=== PATIENT | female | born 1970 | race African-American/Black ===

== ENCOUNTER 2017-03-16 18:50 | Emergency (ER) | payer MEDICAID, OTHER ==
[~2017-03-16] VITALS: Ht 157.5 cm; Wt 84.8 kg
[~2017-03-16 18:50] MED LIST: IBUP-232 PO; ZITH250T PO; ZOFR4TAB3 SL
[2017-03-16 18:52] VITALS: BP 153/99; PULSE 124; RESP 22; TEMP 102.2; O2SAT 98
--- NOTE | 2017-03-16 19:22 | PD ---
Physical Exam Date Seen by Provider: Mar 16, 2017 Time Seen by Provider: 19:17 Narrative 46 yo female here for fever. Was seen at [facility] and diagnosed with sinusitis. Given amoxicillin. Continues to have fevers and headaches. Headache pain is 7/10. Also having some abdominal pain since starting amoxicillin. Taking OTC meds with minimal relief. Vitals showed elevated temperature and tachycardia. Awaiting bed placement. Data Data Last Documented VS Vital Signs Date Time Temp Pulse Resp B/P Pulse Ox O2 Delivery O2 Flow Rate FiO2 03/16/17 18:52 102.2 124 22 153/99 98 Room Air [facility] Medical Record Reviewed: Yes Supervised Visit with PRITESH: No Morgan Ortega Mar 16, 2017 19:22
[2017-03-16] MEDS ORDERED: SODIUM CHLOR 0.9% 1000 ML INJ 400 ML IV ONE (20:12)
[2017-03-16] MEDS ORDERED: SODIUM CHLOR 0.9% 1000 ML INJ 1,000 ML IV ONE ×2 (20:12)
--- NOTE | 2017-03-16 20:14 | PD ---
HPI Chief Complaint: Abdominal Pain Time Seen by Provider: 20:14 Travel History International Travel<30 days: No Contact w/Intl Traveler<30days: No Traveled to known affect area: No History of Present Illness HPI 46-year-old female who is primarily Slovenian speaking, interpretation done by ROSEANN Vicekrs, presents to emergency department for evaluation. Patient states that she has had a fever for the last 3-4 days. She was seen and evaluated for the hospital, diagnosed with sinusitis and started on amoxicillin. She states she has been taking this. Has caused some abdominal discomfort. Denies diarrhea. No urinary symptoms. Patient denies any cough or chest congestion. Reports frontal sinus pain and pressure. No other symptoms to report at this time [facility] Past Medical History Medical History: Denies Significant Hx Diminished Hearing: No ?: Not Past Surgical History Surgical History: No Previous Surgery Social History Alcohol Use: No Tobacco Use: No Substance Use: No Allergies-Medications (Allergen,Severity, Reaction): Coded Allergies: No Known Allergies (Verified , 02/28/12) Reported Meds & Prescriptions Reported Meds & Active Scripts Active Augmentin (Amoxicillin-Clavulanate) 875-125 Mg Tab 1 Tab PO BID 10 Days Review of Systems Except as stated in HPI: all other systems reviewed are Neg Physical Exam Narrative GENERAL: Well-nourished, well-developed female patient in no acute distress SKIN: Focused skin assessment warm/dry. HEAD: Normocephalic. Tenderness with palpation of the frontal maxillary sinuses. EYES: No scleral icterus. No injection or drainage. ENT: Mucosa pink and moist. No erythema or exudates. No uvular edema. No uvular , palatal, or tonsillar deviation. Airway patent. Nasal turbinates are inflamed without nasal blood, purulent drainage or septal hematoma. NECK: Supple, trachea midline. No JVD or lymphadenopathy. CARDIOVASCULAR: Regular rate and rhythm without murmurs, gallops, or rubs. RESPIRATORY: Breath sounds equal bilaterally. No accessory muscle use. GASTROINTESTINAL: Abdomen soft, non-tender, nondistended. No guarding. No rebound tenderness. MUSCULOSKELETAL: No cyanosis, or edema. BACK: Nontender without obvious deformity. No CVA tenderness. Data Data Last Documented VS Vital Signs Date Time Temp Pulse Resp B/P Pulse Ox O2 Delivery O2 Flow Rate FiO2 03/16/17 22:35 77 18 96 Room Air 03/16/17 22:10 98.7 03/16/17 18:52 153/99 Orders Electrocardiogram (03/16/17 20:12) Complete Blood Count With Diff (03/16/17 20:12) Comprehensive Metabolic Panel (03/16/17 20:12) Prothrombin Time / Inr (Pt) (03/16/17 20:12) Act Partial Throm Time (Ptt) (03/16/17 20:12) Lactic Acid Sepsis Protocol (03/16/17 20:12) Lipase (03/16/17 20:12) Urinalysis - C+S If Indicated (03/16/17 20:12) Influenzae A/B Antigen (03/16/17 20:12) Blood Culture (03/16/17 20:12) Chest, Single Ap (03/16/17 20:12) Blood Glucose (03/16/17 20:12) Ecg Monitoring (03/16/17 20:12) Iv Access Insert/Monitor (03/16/17 20:12) Oximetry (03/16/17 20:12) Oxygen Administration (03/16/17 20:12) Acetaminophen (Tylenol) (03/16/17 20:15) Ibuprofen (Motrin) (03/16/17 20:15) Sodium Chlor 0.9% 1000 Ml Inj (Ns 1000 M (03/16/17 20:12) Sodium Chlor 0.9% 1000 Ml Inj (Ns 1000 M (03/16/17 20:12) Sodium Chlor 0.9% 1000 Ml Inj (Ns 1000 M (03/16/17 20:12) Ed Urine Pregnancytest Poc (03/16/17 20:12) Group A Rapid Strep Screen (03/16/17 20:12) Strep Culture (Group A) (03/16/17 20:10) Labs Laboratory Tests Test 03/16/17 03/16/17 20:15 20:32 White Blood Count 13.0 TH/MM3 Red Blood Count 4.34 MIL/MM3 Hemoglobin 12.2 GM/DL Hematocrit 37.0 % Mean Corpuscular Volume 85.2 FL Mean Corpuscular Hemoglobin 28.2 PG Mean Corpuscular Hemoglobin 33.1 % Concent Red Cell Distribution Width 13.5 % Platelet Count 286 TH/MM3 Mean Platelet Volume 8.1 FL Neutrophils (%) (Auto) 56.7 % Lymphocytes (%) (Auto) 24.4 % Monocytes (%) (Auto) 11.0 % Eosinophils (%) (Auto) 7.2 % Basophils (%) (Auto) 0.7 % Neutrophils # (Auto) 7.4 TH/MM3 Lymphocytes # (Auto) 3.2 TH/MM3 Monocytes # (Auto) 1.4 TH/MM3 Eosinophils # (Auto) 0.9 TH/MM3 Basophils # (Auto) 0.1 TH/MM3 CBC Comment DIFF FINAL Differential Comment Prothrombin Time 11.4 SEC Prothromb Time International 1.0 RATIO Ratio Activated Partial 28.6 SEC Thromboplast Time Urine Color YELLOW Urine Turbidity CLEAR Urine pH 5.5 Urine Specific [place] 1.021 Urine Protein TRACE mg/dL Urine Glucose (UA) NEG mg/dL Urine Ketones NEG mg/dL Urine Occult Blood SMALL Urine Nitrite NEG Urine Bilirubin NEG Urine Urobilinogen LESS THAN 2.0 MG/DL Urine Leukocyte Esterase SMALL Urine RBC 8 /hpf Urine WBC 2 /hpf Urine Squamous Epithelial 2 /hpf Cells Urine Mucus FEW /lpf Microscopic Urinalysis Comment CATH-CULT NOT IND Sodium Level 137 MEQ/L Potassium Level 3.9 MEQ/L Chloride Level 103 MEQ/L Carbon Dioxide Level 25.7 MEQ/L Anion Gap 8 MEQ/L Blood Urea Nitrogen 9 MG/DL Creatinine 0.89 MG/DL Estimat Glomerular Filtration 82 ML/MIN Rate Random Glucose 92 MG/DL Calcium Level 8.9 MG/DL Total Bilirubin 0.4 MG/DL Aspartate Amino Transf 23 U/L (AST/SGOT) Alanine Aminotransferase 26 U/L (ALT/SGPT) Alkaline Phosphatase 74 U/L Total Protein 8.0 GM/DL Albumin 3.2 GM/DL Lipase 170 U/L Lactic Acid Level 0.6 mmol/L [facility] Medical Decision Making Medical Screen Exam Complete: Yes Emergency Medical Condition: Yes Medical Record Reviewed: Yes Differential Diagnosis Sinusitis viral versus bacterial versus pneumonia versus influenza versus sepsis versus UTI Narrative Course 46 year-old female presents to the emergency department for evaluation. He is febrile here. She is treated for this as well as pain. CBC is with mild leukocytosis of 13. CMP is without acute concern. Lactic acid is 1.6. Urinalysis is a small complex, small leukocyte esterase, 8 RBC, few mucus. Culture is not indicated. I discussed the patient my attending physician. The only physical finding on exam is inflamed nasal turbinates and facial tenderness to palpation. She has febrile and tachycardic. Upon reassessment these have normalized. Patient will be switched from amoxicillin to Augmentin. She is counseled on care. She verbalizes understanding. She will return immediately with any acute worsening symptoms. Diagnosis Primary Impression: Sinusitis Qualified Code: J01.10 - Acute frontal sinusitis, recurrence not specified Additional Impression: Fever Qualified Code: R50.9 - Fever, unspecified fever cause Referrals: Primary Care Physician Patient Instructions: Fever in Adults (ED), General Instructions Additional Instructions: Alternate Tylenol and ibuprofen every 3 hours to maintain fever control. Take amount directed on the package Stopped taking the antibiotic you are currently. Start antibiotic provided as prescribed.. Follow-up with a primary care provider Return immediately with any acute worsening of symptoms Med/Other Pt SpecificInfo: Prescription(s) given Scripts Amoxicillin-Clavulanate (Augmentin)875-125 Mg Tab1 Tab PO BID 10 Days Ref 0 Prov:Cheryl Mclain 03/16/17 Disposition: 01 DISCHARGE HOME Condition: Stable Cheryl Mclain Mar 16, 2017 20:14
[2017-03-16] MEDS ORDERED: IBUPROFEN 800 MG TAB PO ONE (20:15)
[2017-03-16] MEDS ORDERED: ACETAMINOPHEN 325 MG TAB PO ONE (20:15)
[2017-03-16 21:08] LABS: BLOOD, URINE SMALL (NEG); GLUCOSE,URINE NEG (NEG); KETONE, URINE NEG (NEG); MUCUS URINE FEW /lpf (OCC); NITRITE,URINE NEG (NEG); PH, URINE 5.5 (5.0-8.5); SQUAMOUS EPITHELIAL CELL URINE 2 /hpf (0-5); URINE COLOR YELLOW (YELLW/STRAW)
[2017-03-16 21:09] VITALS: RESP 18; O2SAT 98
[2017-03-16 21:09] LABS: AUTOMATED NEUTROPHIL # 7.4 TH/MM3 (1.8-7.7); BASOPHIL # 0.1 TH/MM3 (0-0.2); BASOPHIL % 0.7 % (0.0-2.0); EOSINOPHIL # 0.9 TH/MM3 (0-0.4); EOSINOPHIL % 7.2 % (0.0-4.0); HEMO FLAGS DIFF FINAL; LYMPH % 24.4 % (9.0-44.0); LYMPHOCYTE # 3.2 TH/MM3 (1.0-4.8); MEAN CELL VOLUME 85.2 FL (80.0-100.0); MEAN CORPUSCULAR HEMOGLOBIN 28.2 PG (27.0-34.0); MEAN CORPUSCULAR HGB CONC 33.1 % (32.0-36.0); NEUT % 56.7 % (16.0-70.0); PLATELET COUNT 286 TH/MM3 (150-450); RED BLOOD COUNT 4.34 MIL/MM3 (4.00-5.30); RED CELL DISTRIBUTION WIDTH 13.5 % (11.6-17.2)
[2017-03-16 21:11] LABS: COMMENT (UR) CATH-CULT NOT IND; CULTURE IF INDICATED CATH CULTURE NOT IND
[2017-03-16 21:19] LABS: APTT (PATIENT) 28.6 SEC (24.3-30.1); PROTHROMBIN TIME - PATIENT 11.4 SEC (9.8-11.6)
[2017-03-16 21:25] LABS: ALT (GPT) 26 U/L (10-53); ANION GAP 8 MEQ/L (5-15); AST (GOT) 23 U/L (15-37); BICARBONATE 25.7 MEQ/L (21.0-32.0); BLOOD UREA NITROGEN 9 MG/DL (7-18); CHLORIDE 103 MEQ/L (98-107); GLOMERULAR FILTRATION RATE 82 ML/MIN (>89); POTASSIUM 3.9 MEQ/L (3.5-5.1); SODIUM (NA) 137 MEQ/L (136-145)
[2017-03-16 21:28] LABS: ALKALINE PHOSPHATASE 74 U/L (45-117); TOTAL BILIRUBIN ADULT 0.4 MG/DL (0.2-1.0)
--- NOTE | 2017-03-16 21:37 | RADRPT ---
EXAM DATE/TIME: 03/16/2017 21:01 [facility] COMPARISON: No previous studies available for comparison. INDICATIONS : Fever. MEDICAL HISTORY : None. SURGICAL HISTORY : None. ENCOUNTER: Initial ACUITY: 2 days PAIN SCORE: 0/10 LOCATION: chest FINDINGS: A single view of the chest demonstrates the lungs to be symmetrically aerated without evidence of mas s, infiltrate or effusion. Minimal base atelectasis. The cardiomediastinal contours are unremarkable . Osseous structures are intact. CONCLUSION: 1. Minimal base atelectasis or scarring similar to 2014. No dense consolidation or effusion. Yves Nova MD on March 16, 2017 at 21:35 Board Certified Radiologist. This report was verified electronically.
[2017-03-16 22:10] VITALS: TEMP 98.7
[2017-03-16 22:35] VITALS: PULSE 77; RESP 18; O2SAT 96
[2017-03-16] MEDS ORDERED: AUGM875T3 PO (22:35)
--- NOTE | 2017-03-17 16:47 | EKG ---
Date Performed: 03/16/2017 Time Performed: 21:02:28 PTAGE: 46 years EKG: Sinus rhythm POSSIBLE LEFT ATRIAL ENLARGEMENT POSSIBLE RIGHT VENTRICULAR CONDUCTION DELAY NONSPECIFIC T-WAVE ABNO RMALITY BORDERLINE ECG PREVIOUS TRACING : 07/12/2014 17.47 Since previous tracing, T-wave changes anteriorly have slig htly improved. Heart rate is slower, otherwise no significant change. DOCTOR: Olayinka Robb Interpretating Date/Time 03/17/2017 16:46:25
== END 2017-03-16 23:23 | disposition home or self-care (01) ==
LOC: NEPD 18:50
DX: J01.10 Acute frontal sinusitis, unspecified (principal); R00.0 Tachycardia, unspecified
CPT/HCPCS: 71010; 80053; 81001; 83605; 83690; 84703; 85025; 85610; 85730; 87040; 87081; 87804; 87880; 93005; 99285; J7030

== ENCOUNTER 2017-10-07 14:24 | Inpatient (IN) | payer OTHER ==
[~2017-10-07] VITALS: Ht 157.5 cm; Wt 88.8 kg
[~2017-10-07 14:24] MED LIST changes: +AUGM875T3 PO; -IBUP-232 PO; -ZITH250T PO; -ZOFR4TAB3 SL
[2017-10-07 14:27] VITALS: BP 182/98; PULSE 124; RESP 28; TEMP 98.9; O2SAT 90
[2017-10-07] MEDS ORDERED: methylPREDNISolone SOD SUCC 125 MG/2 ML VIAL IV PUSH ONE (15:15)
[2017-10-07] MEDS ORDERED: cefTRIAXone INJ 1,000 MG in SODIUM CHLORIDE 0.9% INJ 100 ML IV ONE (15:15)
[2017-10-07] MEDS ORDERED: AZITHROMYCIN INJ 500 MG in SODIUM CHLOR 0.9% 250 ML INJ 250 ML IV ONE (15:15)
[2017-10-07] MEDS ORDERED: SODIUM CHLORIDE 0.9% FLUSH 10 ML FLUSH IVF PRN (15:15)
--- NOTE | 2017-10-07 15:15 | RADRPT ---
EXAM DATE/TIME: 10/07/2017 14:52 [facility] COMPARISON: No previous studies available for comparison. INDICATIONS : Cough MEDICAL HISTORY : None. SURGICAL HISTORY : None. ENCOUNTER: Initial ACUITY: 1 day PAIN SCORE: 0/10 LOCATION: chest FINDINGS: A single view of the chest demonstrates a small infiltrate in the left lung base possible small area of pneumonia. The cardiomediastinal contours are unremarkable. Osseous structures are intact. CONCLUSION: Possible pneumonia left lower lobe. Hossein Becerril MD on October 07, 2017 at 15:12 Board Certified Radiologist. This report was verified electronically.
--- NOTE | 2017-10-07 15:25 | PD ---
HPI Chief Complaint: Cold / Flu Symptoms Time Seen by Provider: 14:42 Travel History International Travel<30 days: No Contact w/Intl Traveler<30days: No Traveled to known affect area: No History of Present Illness HPI Patient comes in complaining of a 2 day history of cough productive of yellow sputum, associated with shortness of breath at rest as well as worsened by activity.... Per patient she is not really bothered by her cough as much as she is by her air hunger and shortness of breath at rest as well as with any type of activity.. No alleviating factors however aggravated by activity. Patient denies any associated symptoms such as headache, chest pain, back pain, abdominal pain, nausea, vomiting, diarrhea or rash. No known drug allergies Past medical history significant for hypothyroid and previous history of pneumonia No major past surgical history either. PFSH Past Medical History Hx Anticoagulant Therapy: No Cardiovascular Problems: No Chemotherapy: No Cerebrovascular Accident: No Diabetes: No Diminished Hearing: No Respiratory: No ?: Not Past Surgical History Hysterectomy: No Social History Alcohol Use: No Tobacco Use: No Substance Use: No Allergies-Medications (Allergen,Severity, Reaction): Coded Allergies: No Known Allergies (Verified Adverse Reaction, Unknown, 10/07/17) Reported Meds & Prescriptions Reported Meds & Active Scripts Active No Active Prescriptions or Reported Medications Review of Systems General / Constitutional: No: Fever Eyes: No: Visual changes HENT: No: Headaches Cardiovascular: No: Chest Pain or Discomfort Respiratory: Positive: Cough, Shortness of Breath Gastrointestinal: No: Abdominal Pain Genitourinary: No: Dysuria Musculoskeletal: No: Pain Skin: No Rash Neurologic: No: Weakness Psychiatric: No: Depression Endocrine: No: Polydipsia Hematologic/Lymphatic: No: Easy Bruising Physical Exam Narrative GENERAL: SKIN: Warm and dry. HEAD: Atraumatic. Normocephalic. EYES: Pupils equal and round. No scleral icterus. No injection or drainage. ENT: No nasal bleeding or discharge. Mucous membranes pink and moist. NECK: Trachea midline. No JVD. CARDIOVASCULAR: Regular rate and rhythm. RESPIRATORY: No accessory muscle use. BILATERAL WHEEZING GASTROINTESTINAL: Abdomen soft, non-tender, nondistended. MUSCULOSKELETAL: Extremities without clubbing, cyanosis, or edema. No obvious deformities. NEUROLOGICAL: Awake and alert. No obvious cranial nerve deficits. Motor grossly within normal limits. Five out of 5 muscle strength in the arms and legs. Normal speech. PSYCHIATRIC: Appropriate mood and affect; insight and judgment normal. Data Data Last Documented VS Vital Signs Date Time Temp Pulse Resp B/P (MAP) Pulse Ox O2 Delivery O2 Flow Rate FiO2 10/07/17 18:19 98.9 112 20 146/84 (104) 98 Nasal Cannula 2.00 Orders Orders Chest, Single Ap (10/07/17 14:42) Electrocardiogram (10/07/17 15:01) Complete Blood Count With Diff (10/07/17 15:01) Comprehensive Metabolic Panel (10/07/17 15:01) B-Type Natriuretic Peptide (10/07/17 15:01) Arterial Blood Gas (Abg) (10/07/17 15:01) Lipase (10/07/17 15:01) Thyroid Stimulating Hormone (10/07/17 15:01) Influenzae A/B Antigen (10/07/17 15:01) Iv Access Insert/Monitor (10/07/17 15:01) Ecg Monitoring (10/07/17 15:01) Oximetry (10/07/17 15:01) Ct Pulmonary Angiogram (10/07/17 15:01) Sodium Chloride 0.9% Flush (Ns Flush) (10/07/17 15:15) Ceftriaxone Inj (Rocephin Inj) (10/07/17 15:15) Azithromycin Inj (Zithromax Inj) (10/07/17 15:15) Methylprednisolone So Succ Inj (Solumedr (10/07/17 15:15) Albuterol Neb (Albuterol Neb) (10/07/17 15:15) Iohexol 350 Inj (Omnipaque 350 Inj) (10/07/17 18:04) Sodium Chlor 0.9% 1000 Ml Inj (Ns 1000 M (10/07/17 18:23) Sodium Chloride 0.9% Flush (Ns Flush) (10/07/17 18:30) Sodium Chloride 0.9% Flush (Ns Flush) (10/07/17 21:00) Azithromycin (Zithromax) (10/08/17 09:00) Acetaminophen (Tylenol) (10/07/17 18:30) Ondansetron Inj (Zofran Inj) (10/07/17 18:30) Albuterol-Ipratropium Neb (Duoneb Neb) (10/07/17 22:00) Albuterol-Ipratropium Neb (Duoneb Neb) (10/07/17 18:30) Guaifen-Dm 200-20 Mg/10 Ml Liq (Robituss (10/07/17 18:30) Admit To Inpatient (10/07/17 ) Vital Signs (Adult) Q4H (10/07/17 18:23) Activity Oob Ad Gladys (10/07/17 18:23) Intake + Output Q8H (10/07/17 18:23) Diet Regular Basic (10/07/17 Dinner) Complete Blood Count With Diff (10/08/17 06:00) Basic Metabolic Panel (Bmp) (10/08/17 06:00) Sputum Culture And Gram Stain (10/07/17 18:23) Admit Order (Ed Use Only) (10/07/17 18:26) Ceftriaxone Inj (Rocephin Inj) (10/08/17 15:00) Labs Laboratory Tests Test 10/07/17 15:30 10/07/17 16:03 Blood Gas Puncture Site RT RADIAL Blood Gas Patient Temperature 98.6 Blood Gas HCO3 28 mmol/L Blood Gas Base Excess 3.9 mmol/L Blood Gas Oxygen Saturation 88 % Arterial Blood pH 7.42 Arterial Blood Partial Pressure CO2 44 mmHg Arterial Blood Partial Pressure O2 53 mmHg Arterial Blood Oxygen Content 16.1 Vol % Arterial Blood Carboxyhemoglobin 1.1 % Arterial Blood Methemoglobin 0.9 % Blood Gas Hemoglobin 13.1 G/DL Oxygen Delivery Device ROOM AIR Blood Gas Inspired Oxygen 21 % White Blood Count 14.9 TH/MM3 Red Blood Count 4.53 MIL/MM3 Hemoglobin 13.0 GM/DL Hematocrit 39.4 % Mean Corpuscular Volume 87.0 FL Mean Corpuscular Hemoglobin 28.7 PG Mean Corpuscular Hemoglobin Concent 33.1 % Red Cell Distribution Width 13.3 % Platelet Count 324 TH/MM3 Mean Platelet Volume 8.2 FL Neutrophils (%) (Auto) 85.1 % Lymphocytes (%) (Auto) 8.1 % Monocytes (%) (Auto) 3.4 % Eosinophils (%) (Auto) 2.9 % Basophils (%) (Auto) 0.5 % Neutrophils # (Auto) 12.7 TH/MM3 Lymphocytes # (Auto) 1.2 TH/MM3 Monocytes # (Auto) 0.5 TH/MM3 Eosinophils # (Auto) 0.4 TH/MM3 Basophils # (Auto) 0.1 TH/MM3 CBC Comment DIFF FINAL Differential Comment Blood Urea Nitrogen 11 MG/DL Creatinine 1.03 MG/DL Random Glucose 112 MG/DL Total Protein 8.5 GM/DL Albumin 3.5 GM/DL Calcium Level 9.0 MG/DL Alkaline Phosphatase 89 U/L Aspartate Amino Transf (AST/SGOT) 31 U/L Alanine Aminotransferase (ALT/SGPT) 26 U/L Total Bilirubin 0.4 MG/DL Sodium Level 139 MEQ/L Potassium Level 4.3 MEQ/L Chloride Level 104 MEQ/L Carbon Dioxide Level 30.1 MEQ/L Anion Gap 5 MEQ/L Estimat Glomerular Filtration Rate 69 ML/MIN B-Type Natriuretic Peptide 34 PG/ML Lipase 98 U/L Thyroid Stimulating Hormone 3rd Gen 2.100 uIU/ML MDM Medical Decision Making Medical Screen Exam Complete: Yes Emergency Medical Condition: Yes Medical Record Reviewed: Yes Interpretation(s) Patient is found to have an EKG normal sinus rhythm at 88 bpm. PMITRALE, incomplete right bundle branch block, as well as inverted T waves on V1 through V6. Differential Diagnosis Pulmonary embolus versus pneumonia versus pneumothorax versus Narrative Course Chest x-ray shows possible left lower lobe pneumonia. However the patient's ABG on room air shows a pH of 7.42 PCO2 of 43 and PaO2 of 53. Such severe hypoxemia I am concerned for the possibility of pulmonary embolus this patient will be receiving an IV to receive some Solu-Medrol as well as antibiotics Rocephin and azithromycin and supplemental oxygen as well as nebulizers. She will also have a CT chest r/o pe.... Flu test is negative. Chemistry shows a normal thyroid function and normal lipase beta natruretic peptide of 34 which is normal LFTs which were also normal as well as alk phos and bilirubin which were normal as well all electrolytes were within normal limits as well creatinine 1.03 GFR estimated [address] chest is negative for any pulmonary embolus Critical Care Narrative CRITICAL CARE NOTE: With evaluation of the patient, labs, EKG, receipt of radiologic studies, administration of medications, reevaluation the patient and discussion of the patient with the admitting physicians, the total critical care time was [45] minutes. Time to perform other separately billable procedures was not included in the critical care time. Diagnosis Primary Impression: severe hypoxemia Additional Impression: Left lower lobe pneumonia Admitting Information Admitting Physician Requests: Admit Scripts No Active Prescriptions or Reported Meds Kaushik Montero MD Oct 07, 2017 15:25
[2017-10-07] MEDS: RESP: ALBUTEROL 2.5 MG/3 ML NEB (SCH) INH ×2 (15:27→15:28)
[2017-10-07 15:28] VITALS: O2SAT 98
[2017-10-07 16:04] VITALS: BP 148/99; O2SAT 100
[2017-10-07 16:17] LABS: AUTOMATED NEUTROPHIL # 12.7 TH/MM3 (1.8-7.7); BASOPHIL # 0.1 TH/MM3 (0-0.2); BASOPHIL % 0.5 % (0.0-2.0); EOSINOPHIL # 0.4 TH/MM3 (0-0.4); EOSINOPHIL % 2.9 % (0.0-4.0); HEMATOCRIT 39.4 % (35.0-46.0); LYMPH % 8.1 % (9.0-44.0); LYMPHOCYTE # 1.2 TH/MM3 (1.0-4.8); MEAN CORPUSCULAR HEMOGLOBIN 28.7 PG (27.0-34.0); MEAN CORPUSCULAR HGB CONC 33.1 % (32.0-36.0); MEAN PLATELET VOLUME 8.2 FL (7.0-11.0); MONO % 3.4 % (0.0-8.0); MONOCYTE # 0.5 TH/MM3 (0-0.9); NEUT % 85.1 % (16.0-70.0); PLATELET COUNT 324 TH/MM3 (150-450); RED BLOOD COUNT 4.53 MIL/MM3 (4.00-5.30); RED CELL DISTRIBUTION WIDTH 13.3 % (11.6-17.2); WHITE BLOOD COUNT 14.9 TH/MM3 (4.0-11.0)
[2017-10-07 16:51] LABS: ALBUMIN 3.5 GM/DL (3.4-5.0); ALT (GPT) 26 U/L (10-53); AST (GOT) 31 U/L (15-37); BICARBONATE 30.1 MEQ/L (21.0-32.0); BLOOD UREA NITROGEN 11 MG/DL (7-18); CHLORIDE 104 MEQ/L (98-107); CREATININE 1.03 MG/DL (0.50-1.00); GLOMERULAR FILTRATION RATE 69 ML/MIN (>89); GLUCOSE,RANDOM 112 MG/DL (74-106); SODIUM (NA) 139 MEQ/L (136-145)
[2017-10-07 16:55] LABS: ALKALINE PHOSPHATASE 89 U/L (45-117); TOTAL BILIRUBIN ADULT 0.4 MG/DL (0.2-1.0); TOTAL PROTEIN 8.5 GM/DL (6.4-8.2)
[2017-10-07] MEDS ORDERED: IOHEXOL 350 MG/ML 10 ML VIAL (for RAD DIAG) IVCONTRAST ONE (18:04)
[2017-10-07 18:19] VITALS: BP 146/84; PULSE 112; RESP 20; TEMP 98.9; O2SAT 98
--- NOTE | 2017-10-07 18:25 | RADRPT ---
EXAM DATE/TIME: 10/07/2017 18:00 [facility] COMPARISON: No previous studies available for comparison. INDICATIONS : Productive cough since yesterday. IV CONTRAST: 75 cc Omnipaque 350 (iohexol) IV RADIATION DOSE: 21.42 CTDIvol (mGy) MEDICAL HISTORY : None SURGICAL HISTORY : None. ENCOUNTER: Initial ACUITY: 2 days PAIN SCALE: 5/10 LOCATION: chest TECHNIQUE: Volumetric scanning of the chest was performed using a pulmonary embolism protocol MIP images were re constructed. Using automated exposure control and adjustment of the mA and/or kV according to patien t size, radiation dose was kept as low as reasonably achievable to obtain optimal diagnostic quality images. DICOM format image data is available electronically for review and comparison. Follow-up recommendations for detected pulmonary nodules are based at a minimum on nodule size and pa tient risk factors according to Fleischner Society Guidelines. FINDINGS: PULMONARY ARTERIES: No filling defects are seen in the pulmonary arteries through the segmental level. LUNGS: There is no consolidation or pneumothorax . No concerning pulmonary nodule is visualized. Interstiti al lung disease both lung bases left greater than right. PLEURAE: There is no pleural thickening or pleural effusion. MEDIASTINUM: There is good visualization of the great vessels of the middle mediastinum. No evidence of mediastin al or hilar adenopathy/mass. MUSCULOSKELETAL: Within normal limits for patient age. MISCELLANEOUS: The visualized upper abdominal organs demonstrate no acute abnormality. CONCLUSION: Normal examination for pulmonary embolism. Mild bibasilar interstitial lung disease . Hossein Becerril MD on October 07, 2017 at 18:22 Board Certified Radiologist. This report was verified electronically.
[2017-10-07] MEDS ORDERED: ACETAMINOPHEN 325 MG TAB PO PRN (18:30)
[2017-10-07] MEDS ORDERED: RESP: ALBUTEROL 2.5 MG/IPRATROPIUM 0.5 MG NEB (PRN) INH (18:30)
[2017-10-07] MEDS ORDERED: SODIUM CHLORIDE 0.9% FLUSH 10 ML FLUSH IV FLUSH PRN (18:30)
[2017-10-07] MEDS ORDERED: guaiFENesin/DEXTROMETHORPHAN 200 MG/20 MG/10 ML CUP PO PRN (18:30)
[2017-10-07] MEDS ORDERED: ONDANSETRON HCL 4 MG/2 ML VIAL IV PUSH PRN (18:30)
--- NOTE | 2017-10-07 19:22 | HHI.HP ---
HPI Service [facility] Primary Care Physician No Primary Care Physician Admission Diagnosis LLL PNA WITH SEVERE HYPOXEMIA Diagnoses: Travel History International Travel<30 Days: No Contact w/Intl Traveler <30 Da: No Traveled to Known Affected Are: No History of Present Illness 47-year-old female with no significant past medical history presents to the emergency department with a chief complaint of shortness of breath. Patient reports that she felt as though she couldn't breathe starting yesterday. She reports an accompanying weakness/fatigue. Has a cough productive of yellow sputum. Denies fever/chills. Denies any associated chest pain. Negative nausea/vomiting/diarrhea. She has no other complaints at this time. Vital signs: Temperature 98.9, pulse 124, respiratory rate 28, blood pressure 182/98, pulse ox 90% on room air. Review of Systems Except as stated in HPI: all other systems reviewed are Neg Past Family Social History Past Medical History None Past Surgical History Left ankle surgery Reported Medications Reported Meds & Active Scripts Active No Active Prescriptions or Reported Medications Allergies: Coded Allergies: No Known Allergies (Verified Adverse Reaction, Unknown, 10/07/17) Family History Grandfather with diabetes mellitus. Social History Denies alcohol, tobacco and illicit drugs Physical Exam Vital Signs Vital Signs Date Time Temp Pulse Resp B/P (MAP) Pulse Ox O2 Delivery O2 Flow Rate FiO2 10/07/17 19:10 10/07/17 18:19 98.9 112 20 146/84 (104) 98 Nasal Cannula 2.00 10/07/17 16:07 100 Room Air 10/07/17 16:04 148/99 (115) 100 Room Air 10/07/17 15:28 98 Nasal Cannula 3.00 10/07/17 14:27 98.9 124 28 182/98 (126) 90 Physical Exam GENERAL: Female sitting up in bed SKIN: No rashes, ecchymoses or lesions. Cool and dry. HEAD: Atraumatic. Normocephalic. No temporal or scalp tenderness. EYES: Pupils equal round and reactive. Extraocular motions intact. No scleral icterus. No injection or drainage. ENT: Nose without bleeding, purulent drainage or septal hematoma. Throat without erythema, tonsillar hypertrophy or exudate. Uvula midline. Airway patent. NECK: Trachea midline. No JVD or lymphadenopathy. Supple, nontender, no meningeal signs. CARDIOVASCULAR: Regular rate and rhythm without murmurs, gallops, or rubs. RESPIRATORY: Bilateral crackles and expiratory wheezes throughout. GASTROINTESTINAL: Abdomen soft, non-tender, nondistended. No hepato-splenomegaly , or palpable masses. No guarding. MUSCULOSKELETAL: Extremities without clubbing, cyanosis, or edema. No joint tenderness, effusion, or edema noted. No calf tenderness. NEUROLOGICAL: Awake and alert. Cranial nerves II through XII intact. Motor and sensory grossly within normal limits. Normal speech. Laboratory Laboratory Tests Test 10/07/17 15:30 10/07/17 16:03 Blood Gas Puncture Site RT RADIAL Blood Gas Patient Temperature 98.6 Blood Gas HCO3 28 Blood Gas Base Excess 3.9 Blood Gas Oxygen Saturation 88 Arterial Blood pH 7.42 Arterial Blood Partial Pressure CO2 44 Arterial Blood Partial Pressure O2 53 Arterial Blood Oxygen Content 16.1 Arterial Blood Carboxyhemoglobin 1.1 Arterial Blood Methemoglobin 0.9 Blood Gas Hemoglobin 13.1 Oxygen Delivery Device ROOM AIR Blood Gas Inspired Oxygen 21 White Blood Count 14.9 Red Blood Count 4.53 Hemoglobin 13.0 Hematocrit 39.4 Mean Corpuscular Volume 87.0 Mean Corpuscular Hemoglobin 28.7 Mean Corpuscular Hemoglobin Concent 33.1 Red Cell Distribution Width 13.3 Platelet Count 324 Mean Platelet Volume 8.2 Neutrophils (%) (Auto) 85.1 Lymphocytes (%) (Auto) 8.1 Monocytes (%) (Auto) 3.4 Eosinophils (%) (Auto) 2.9 Basophils (%) (Auto) 0.5 Neutrophils # (Auto) 12.7 Lymphocytes # (Auto) 1.2 Monocytes # (Auto) 0.5 Eosinophils # (Auto) 0.4 Basophils # (Auto) 0.1 CBC Comment DIFF FINAL Differential Comment Blood Urea Nitrogen 11 Creatinine 1.03 Random Glucose 112 Total Protein 8.5 Albumin 3.5 Calcium Level 9.0 Alkaline Phosphatase 89 Aspartate Amino Transf (AST/SGOT) 31 Alanine Aminotransferase (ALT/SGPT) 26 Total Bilirubin 0.4 Sodium Level 139 Potassium Level 4.3 Chloride Level 104 Carbon Dioxide Level 30.1 Anion Gap 5 Estimat Glomerular Filtration Rate 69 B-Type Natriuretic Peptide 34 Lipase 98 Thyroid Stimulating Hormone 3rd Gen 2.100 Date/Time Source Procedure Growth Status 10/07/17 16:00 Nasal Washing Influenza Types A,B Antigen (MARTÍNEZ) - Final NEGATIVE FOR FLU A AND B ANTIGEN.... Complete Result Diagram: 10/07/17 1603 10/07/17 1603 Caprini VTE Risk Assessment Caprini VTE Risk Assessment: No/Low Risk (score <= 1) Caprini Risk Assessment Model Point Value = 1 Point Value = 2 Point Value = 3 Point Value = 5 Age 41-60 Minor surgery BMI > 25 kg/m2 Swollen legs Varicose veins or History of unexplained or recurrent spontaneous Oral contraceptives or hormone replacement Sepsis (< 1 month) Serious lung disease, including pneumonia (< 1 month) Abnormal pulmonary function Acute myocardial infarction Congestive heart failure (< 1 month) History of inflammatory bowel disease Medical patient at bed rest Age 61-74 Arthroscopic surgery Major open surgery (> 45 min) Laparoscopic surgery (> 45 min) Malignancy Confined to bed (> 72 hours) Immobilizing plaster cast Central venous access Age >= 75 History of VTE Family history of VTE Factor V Leiden Prothrombin [id number] Lupus anticoagulant Anticardiolipin antibodies Elevated serum homocysteine Heparin-induced thrombocytopenia Other congenital or acquired thrombophilia Stroke (< 1 month) Elective arthroplasty Hip, pelvis, or leg fracture Acute spinal cord injury (< 1 month) Prophylaxis Regimen Total Risk Factor Score Risk Level Prophylaxis Regimen 0-1 Low Early ambulation 2 Moderate Order ONE of the following: *Sequential Compression Device (SCD) *Heparin 5000 units SQ BID 3-4 Higher Order ONE of the following medications: *Heparin 5000 units SQ TID *Enoxaparin/Lovenox 40 mg SQ daily (WT < 150 kg, CrCl > 30 mL/min) *Enoxaparin/Lovenox 30 mg SQ daily (WT < 150 kg, CrCl > 10-29 mL/min) *Enoxaparin/Lovenox 30 mg SQ BID (WT < 150 kg, CrCl > 30 mL/min) AND/OR *Sequential Compression Device (SCD) 5 or more Highest Order ONE of the following medications: *Heparin 5000 units SQ TID (Preferred with Epidurals) *Enoxaparin/Lovenox 40 mg SQ daily (WT < 150 kg, CrCl > 30 mL/min) *Enoxaparin/Lovenox 30 mg SQ daily (WT < 150 kg, CrCl > 10-29 mL/min) *Enoxaparin/Lovenox 30 mg SQ BID (WT < 150 kg, CrCl > 30 mL/min) AND *Sequential Compression Device (SCD) Assessment and Plan Assessment and Plan Assessment/plan: 1. Community-acquired pneumonia/sepsis Patient tachycardic, tachypneic with leukocytosis Chest x-ray significant for left lower lobe pneumonia CT pulmonary angiogram negative for PE Rocephin and azithromycin IV steroids Duo nebs IV fluids Supplemental oxygen as needed Monitor for signs of shock FEN Regular diet Electrolytes: monitor and replete prn Ambulation NS at 75 cc/hour Physician Certification 2 Midnight Certification Type: Admission for Inpatient Services Order for Inpatient Services The services are ordered in accordance with Medicare regulations or non- Medicare payer requirements, as applicable. In the case of services not specified as inpatient-only, they are appropriately provided as inpatient services in accordance with the 2-midnight benchmark. Estimated LOS (days): 2 2 days is the estimated time the patient will need to remain in the hospital, assuming treatment plan goals are met and no additional complications. Post-Hospital Plan: Not yet determined Tala Jain MD Oct 07, 2017 19:22
[2017-10-07] MEDS: SODIUM CHLOR 0.9% 1000 ML INJ 1,000 ML IV SCH (19:41)
[2017-10-07] MEDS: SODIUM CHLORIDE 0.9% FLUSH 10 ML FLUSH IV FLUSH SCH (19:43)
[2017-10-07] MEDS: methylPREDNISolone SOD SUCC 40 MG/1 ML VIAL IV PUSH SCH (19:49)
[2017-10-07 20:00] VITALS: BP 137/78; PULSE 106; RESP 20; TEMP 98.9; O2SAT 97
[2017-10-07] MEDS: RESP: ALBUTEROL 2.5 MG/IPRATROPIUM 0.5 MG NEB (SCH) INH (22:14)
[2017-10-08 00:23] VITALS: BP 125/84; PULSE 96; RESP 20; TEMP 97.7; O2SAT 98
[2017-10-08] MEDS: RESP: ALBUTEROL 2.5 MG/IPRATROPIUM 0.5 MG NEB (SCH) INH ×4 (02:51→19:42)
[2017-10-08 08:00] VITALS: BP 131/69; PULSE 83; RESP 19; TEMP 97.3; O2SAT 95
[2017-10-08] MEDS: AZITHROMYCIN 250 MG TAB PO SCH (09:12)
[2017-10-08] MEDS: SODIUM CHLORIDE 0.9% FLUSH 10 ML FLUSH IV FLUSH SCH ×2 (09:12→21:00)
[2017-10-08] MEDS: methylPREDNISolone SOD SUCC 40 MG/1 ML VIAL IV PUSH SCH ×2 (09:12→21:39)
[2017-10-08] MEDS: SODIUM CHLOR 0.9% 1000 ML INJ 1,000 ML IV SCH ×2 (09:14→21:38)
[2017-10-08 10:00] LABS: AUTOMATED NEUTROPHIL # 11.3 TH/MM3 (1.8-7.7); BASOPHIL % 0.4 % (0.0-2.0); EOSINOPHIL % 0.1 % (0.0-4.0); HEMATOCRIT 38.5 % (35.0-46.0); HEMOGLOBIN 12.5 GM/DL (11.6-15.3); LYMPH % 10.3 % (9.0-44.0); LYMPHOCYTE # 1.3 TH/MM3 (1.0-4.8); MEAN CELL VOLUME 87.4 FL (80.0-100.0); MEAN CORPUSCULAR HEMOGLOBIN 28.5 PG (27.0-34.0); MEAN CORPUSCULAR HGB CONC 32.6 % (32.0-36.0); MEAN PLATELET VOLUME 8.6 FL (7.0-11.0); MONO % 2.3 % (0.0-8.0); MONOCYTE # 0.3 TH/MM3 (0-0.9); NEUT % 86.9 % (16.0-70.0); PLATELET COUNT 307 TH/MM3 (150-450); RED CELL DISTRIBUTION WIDTH 13.3 % (11.6-17.2)
[2017-10-08 10:24] LABS: BICARBONATE 26.8 MEQ/L (21.0-32.0); CALCIUM 9.3 MG/DL (8.5-10.1); CREATININE 0.8 MG/DL (0.50-1.00)
[2017-10-08 11:49] VITALS: O2SAT 96
[2017-10-08 12:00] VITALS: BP 134/72; PULSE 78; RESP 20; TEMP 97.9; O2SAT 95
--- NOTE | 2017-10-08 12:15 | HHI.PR ---
Subjective Remarks The patient was resting comfortably in bed. She has been tolerating a diet. She continues to have a dry cough. Her family was at the bedside and their questions were answered. Discussed with nursing. Objective Vitals Vital Signs Date Time Temp Pulse Resp B/P (MAP) Pulse Ox O2 Delivery O2 Flow Rate FiO2 10/08/17 11:49 96 Nasal Cannula 1.00 10/08/17 08:00 97.3 83 19 131/69 (89) 95 10/08/17 00:23 97.7 96 20 125/84 (98) 98 10/07/17 22:00 Nasal Cannula 2.00 10/07/17 20:00 98.9 106 20 137/78 (97) 97 10/07/17 19:10 10/07/17 18:19 98.9 112 20 146/84 (104) 98 Nasal Cannula 2.00 10/07/17 16:07 100 Room Air 10/07/17 16:04 148/99 (115) 100 Room Air 10/07/17 15:28 98 Nasal Cannula 3.00 10/07/17 14:27 98.9 124 28 182/98 (126) 90 I/O 10/07/17 10/07/17 10/07/17 10/08/17 10/08/17 10/08/17 07:00 15:00 23:00 07:00 15:00 23:00 Intake Total 580 ml 240 ml Balance 580 ml 240 ml Intake Oral 580 ml 240 ml # Voids 3 Result Diagram: 10/08/17 0907 10/08/17 [address] Angiography 10/07/17 1501 Signed Impressions: Service Date/Time: Saturday, October 07, 2017 18:00 - CONCLUSION: Normal examination for pulmonary embolism. Mild bibasilar interstitial lung disease . Hossein Becerril MD Chest X-Ray 10/07/17 1442 Signed Impressions: Service Date/Time: Saturday, October 07, 2017 14:52 - CONCLUSION: Possible pneumonia left lower lobe. Hossein Becerril MD Objective Remarks GENERAL: Resting comfortably. SKIN: No rashes, ecchymoses or lesions. Cool and dry. HEAD: Atraumatic. Normocephalic. No temporal or scalp tenderness. EYES: Pupils equal round and reactive. Extraocular motions intact. No scleral icterus. No injection or drainage. ENT: Nose without bleeding, purulent drainage or septal hematoma. Throat without erythema, tonsillar hypertrophy or exudate. Uvula midline. Airway patent. NECK: Trachea midline. No JVD or lymphadenopathy. Supple, nontender, no meningeal signs. CARDIOVASCULAR: Regular rate and rhythm without murmurs, gallops, or rubs. RESPIRATORY: Diffuse expiratory wheezing. GASTROINTESTINAL: Abdomen soft, non-tender, nondistended. No hepato-splenomegaly , or palpable masses. No guarding. MUSCULOSKELETAL: Extremities without clubbing, cyanosis, or edema. No joint tenderness, effusion, or edema noted. NEUROLOGICAL: Awake and alert. Cranial nerves II through XII intact. Motor and sensory grossly within normal limits. Normal speech. PSYCH: Mood and affect appropriate. Medications and IVs Current Medications Medications (Trade) Dose Ordered Sig/Ellis Route Start Time Stop Time Status Last Admin Sodium Chloride 1,000 ml @ 75 mls/hr [id number] IV 10/07/17 18:23 10/08/17 09:14 (NS Flush) 2 ml UNSCH PRN IV FLUSH 10/07/17 18:30 (NS Flush) 2 ml BID IV FLUSH 10/07/17 21:00 10/08/17 09:12 Ceftriaxone Sodium 1000 mg/ Sodium Chloride 100 ml @ 200 mls/hr Q24H IV 10/08/17 15:00 (Zithromax) 500 mg DAILY PO 10/08/17 09:00 10/08/17 09:12 (Tylenol) 650 mg Q4H PRN PO 10/07/17 18:30 (Zofran Inj) 4 mg Q6H PRN IV PUSH 10/07/17 18:30 (Duoneb Neb) 1 ampule Q6HR NEB INH 10/07/17 22:00 10/08/17 11:49 (Duoneb Neb) 1 ampule Q4HR NEB PRN INH 10/07/17 18:30 (Robitussin Dm 200-20 Mg/10 ml Liq) 10 ml Q4H PRN PO 10/07/17 18:30 10/07/17 19:49 (SoluMEDROL INJ) 40 mg Q12HR IV PUSH 10/07/17 21:00 10/08/17 09:12 A/P Assessment and Plan Community-acquired pneumonia/sepsis Patient tachycardic, tachypneic with leukocytosis and hypoxemia. Chest x-ray significant for left lower lobe pneumonia. CT pulmonary angiogram negative for PE. - continue Rocephin and azithromycin. - IV steroids. - standing and as needed Duonebs. - IV fluids. - Supplemental oxygen as needed. Walk test prior to discharge. - encourage ambulation. - incentive spirometry. Renal insufficiency Improved with IVFs. - avoid nephrotoxic agents. - IVFs. PPx: SCDs Discharge Planning Awaiting improvement in respiratory status Rj Freeman DO Oct 08, 2017 12:15
[2017-10-08] MEDS ORDERED: cefTRIAXone INJ 1,000 MG in SODIUM CHLORIDE 0.9% INJ 100 ML IV SCH (15:00)
[2017-10-08 16:00] VITALS: BP 137/72; PULSE 73; RESP 19; TEMP 98; O2SAT 97
[2017-10-08 20:00] VITALS: BP 116/57; PULSE 72; RESP 20; O2SAT 98
--- NOTE | 2017-10-08 23:05 | EKG ---
Date Performed: 10/07/2017 Time Performed: 17:14:52 PTAGE: 47 years EKG: Sinus rhythm POSSIBLE RIGHT ATRIAL ENLARGEMENT LEFT ATRIAL ENLARGEMENT POSSIBLE RIGHT VENTRICULAR CONDUCTION MEHDI Y MODERATE T-WAVE ABNORMALITY, CONSIDER ANTEROLATERAL ISCHEMIA ABNORMAL ECG PREVIOUS TRACING : 03/16/2017 21.02 DOCTOR: Benjamin Coronel Interpretating Date/Time 10/08/2017 22:56:28
[2017-10-09] VITALS: BP 131/68; PULSE 79; RESP 20; TEMP 97.2; O2SAT 96
[2017-10-09] MEDS: RESP: ALBUTEROL 2.5 MG/IPRATROPIUM 0.5 MG NEB (SCH) INH ×2 (04:03→10:00)
[2017-10-09 04:05] VITALS: O2SAT 96
[2017-10-09 08:00] VITALS: BP 151/82; PULSE 63; RESP 20; TEMP 97.1; O2SAT 96
[2017-10-09] MEDS: AZITHROMYCIN 250 MG TAB PO SCH (08:17)
[2017-10-09] MEDS: methylPREDNISolone SOD SUCC 40 MG/1 ML VIAL IV PUSH SCH (08:17)
[2017-10-09] MEDS: SODIUM CHLORIDE 0.9% FLUSH 10 ML FLUSH IV FLUSH SCH (08:17)
--- NOTE | 2017-10-09 08:38 | HHI.PR ---
Subjective Remarks in no acute distress. sob has improved. has occasional cough. no fever. Objective Vitals Vital Signs Date Time Temp Pulse Resp B/P (MAP) Pulse Ox O2 Delivery O2 Flow Rate FiO2 10/09/17 04:05 96 10/09/17 00:00 97.2 79 20 131/68 (89) 96 10/08/17 20:00 72 20 116/57 (76) 98 10/08/17 16:00 98.0 73 19 137/72 (93) 97 10/08/17 12:00 97.9 78 20 134/72 (92) 95 10/08/17 11:49 96 Nasal Cannula 1.00 I/O 10/08/17 10/08/17 10/08/17 10/09/17 10/09/17 10/09/17 07:00 15:00 23:00 07:00 15:00 23:00 Intake Total 580 ml 360 ml 1850 ml Output Total 700 ml Balance 580 ml 360 ml 1150 ml Intake Oral 580 ml 360 ml 850 ml IV Total 1000 ml Output Urine Total 700 ml # Voids 3 # Bowel Movements 1 Result Diagram: 10/08/17 0907 10/08/17 [address] Angiography 10/07/17 1501 Signed Impressions: Service Date/Time: Saturday, October 07, 2017 18:00 - CONCLUSION: Normal examination for pulmonary embolism. Mild bibasilar interstitial lung disease . Hossein Becerril MD Chest X-Ray 10/07/17 1442 Signed Impressions: Service Date/Time: Saturday, October 07, 2017 14:52 - CONCLUSION: Possible pneumonia left lower lobe. Hossein Becerril MD Objective Remarks GENERAL: This is a well-nourished, well-developed patient, in no apparent distress. CARDIOVASCULAR: Regular rate and regular rhythm without murmurs, gallops, or rubs. RESPIRATORY: rales on left base. GASTROINTESTINAL: Abdomen soft, non-tender, nondistended. Normal, active bowel sounds MUSCULOSKELETAL: Extremities without clubbing, cyanosis, or edema. NEURO: Alert & Oriented x4 to person, place, time, situation. Moves all ext x4 Procedures none Medications and IVs Inpatient Medications Acetaminophen (Tylenol) 650 mg Q4H PRN PO TEMPERATURE > 101 F; Start 10/07/17 at 18:30 Albuterol Sulfate (Albuterol Neb) 2.5 mg Q15M INH Last administered on at 15:28; Start 10/07/17 at 15:15; Stop 10/07/17 at 15:46; Status DC Albuterol/ Ipratropium (Duoneb Neb) 1 ampule Q4HR NEB PRN INH SHORTNESS OF BREATH; Start 10/07/17 at 18:30 Azithromycin (Zithromax) 500 mg DAILY PO Last administered on 10/09/17at 08:17; Start 10/08/17 at 09:00 Azithromycin 500 mg/Sodium Chloride 250 ml @ 250 mls/hr ONCE ONCE IV Last administered on 10/07/17at 18:19; Start 10/07/17 at 15:15; Stop 10/07/17 at 16:14 ; Status DC Ceftriaxone Sodium 1000 mg/ Sodium Chloride 100 ml @ 200 mls/hr Q24H IV Last administered on 10/08/17at 15:16; Start 10/08/17 at 15:00 Guaifenesin/ Dextromethorphan (Robitussin Dm 200-20 Mg/10 ml Liq) 10 ml Q4H PRN PO COUGH Last administered on 10/07/17at 19:49; Start 10/07/17 at 18:30 Methylprednisolone Sodium Succinate (SoluMEDROL INJ) 40 mg Q12HR IV PUSH Last administered on 10/09/17at 08:17; Start 10/07/17 at 21:00 Ondansetron HCl (Zofran Inj) 4 mg Q6H PRN IV PUSH NAUSEA; Start 10/07/17 at 18: 30 Sodium Chloride (NS Flush) 2 ml BID IV FLUSH Last administered on 10/09/17at 08: 17; Start 10/07/17 at 21:00 A/P Assessment and Plan Community-acquired pneumonia/sepsis Patient tachycardic, tachypneic with leukocytosis and hypoxemia. Chest x-ray significant for left lower lobe pneumonia. CT pulmonary angiogram negative for PE. - continue Rocephin and azithromycin; will switch to po antibiotics upon discharge. - IV steroids; will switch to po prednisone upon discharge. - Supplemental oxygen as needed. Walk test prior to discharge. - encourage ambulation. - incentive spirometry. Renal insufficiency Improved with IVFs. - avoid nephrotoxic agents. - IVFs. PPx: SCDs Discharge Planning possible dc home later today- pending the blood tests and walk test. d/w the patient. Michael Le MD Oct 09, 2017 08:38
[2017-10-09] MEDS ORDERED: ZITH250T PO (08:40)
[2017-10-09] MEDS ORDERED: CEFU1TAB18 PO (08:40)
[2017-10-09] MEDS ORDERED: PRED20 PO (08:40)
[2017-10-09] MEDS ORDERED: VENTAER INH (08:40)
[2017-10-09 09:30] LABS: HEMATOCRIT 37.5 % (35.0-46.0); HEMOGLOBIN 12.3 GM/DL (11.6-15.3); MEAN CELL VOLUME 86.1 FL (80.0-100.0); MEAN CORPUSCULAR HEMOGLOBIN 28.4 PG (27.0-34.0); MEAN CORPUSCULAR HGB CONC 32.9 % (32.0-36.0); MEAN PLATELET VOLUME 8.4 FL (7.0-11.0); PLATELET COUNT 340 TH/MM3 (150-450); RED BLOOD COUNT 4.35 MIL/MM3 (4.00-5.30); RED CELL DISTRIBUTION WIDTH 13.6 % (11.6-17.2); WHITE BLOOD COUNT 14.9 TH/MM3 (4.0-11.0)
[2017-10-09 09:49] LABS: BICARBONATE 27.7 MEQ/L (21.0-32.0); CALCIUM 9.2 MG/DL (8.5-10.1); CREATININE 0.78 MG/DL (0.50-1.00); MAGNESIUM 2.2 MG/DL (1.5-2.5)
[2017-10-09 10:08] VITALS: O2SAT 98
[2017-10-09] MEDS: SODIUM CHLOR 0.9% 1000 ML INJ 1,000 ML IV SCH (10:09)
--- NOTE | 2017-10-09 10:20 | HHI.DS ---
Discharge Summary Admission Date Oct 07, 2017 at 18:29 Discharge Date: Oct 09, 2017 Admitting Diagnosis LLL PNA WITH SEVERE HYPOXEMIA (1) Pneumonia ICD Code: J18.9 - Pneumonia, unspecified organism Diagnosis: Principal Procedures none Brief History - From Admission 47-year-old female with no significant past medical history presents to the emergency department with a chief complaint of shortness of breath. Patient reports that she felt as though she couldn't breathe starting yesterday. She reports an accompanying weakness/fatigue. Has a cough productive of yellow sputum. Denies fever/chills. Denies any associated chest pain. Negative nausea/vomiting/diarrhea. She has no other complaints at this time. Vital signs: Temperature 98.9, pulse 124, respiratory rate 28, blood pressure 182/98, pulse ox 90% on room air. CBC/BMP: 10/09/17 0835 10/09/17 0835 Significant Findings Laboratory Tests Test 10/07/17 15:30 10/07/17 16:03 10/08/17 09:07 10/09/17 08:35 Blood Gas HCO3 28 mmol/L (22-26) Blood Gas Base Excess 3.9 mmol/L (-2-2) Blood Gas Oxygen Saturation 88 % (90-100) Arterial Blood Partial Pressure CO2 44 mmHg (38-42) Arterial Blood Partial Pressure O2 53 mmHg (61-120) White Blood Count 14.9 TH/MM3 (4.0-11.0) 13.0 TH/MM3 (4.0-11.0) 14.9 TH/MM3 (4.0-11.0) Neutrophils (%) (Auto) 85.1 % (16.0-70.0) 86.9 % (16.0-70.0) Lymphocytes (%) (Auto) 8.1 % (9.0-44.0) Neutrophils # (Auto) 12.7 TH/MM3 (1.8-7.7) 11.3 TH/MM3 (1.8-7.7) Creatinine 1.03 MG/DL (0.50-1.00) Random Glucose 112 MG/DL (74-106) 125 MG/DL (74-106) 144 MG/DL (74-106) Total Protein 8.5 GM/DL (6.4-8.2) Estimat Glomerular Filtration Rate 69 ML/MIN (>89) Imaging Last Impressions CT Angiography 10/07/17 1501 Signed Impressions: Service Date/Time: Saturday, October 07, 2017 18:00 - CONCLUSION: Normal examination for pulmonary embolism. Mild bibasilar interstitial lung disease . Hossein Becerril MD Chest X-Ray 10/07/17 1442 Signed Impressions: Service Date/Time: Saturday, October 07, 2017 14:52 - CONCLUSION: Possible pneumonia left lower lobe. Hossein Becerril MD PE at Discharge GENERAL: This is a well-nourished, well-developed patient, in no apparent distress. CARDIOVASCULAR: Regular rate and regular rhythm without murmurs, gallops, or rubs. RESPIRATORY: rales on left base. GASTROINTESTINAL: Abdomen soft, non-tender, nondistended. Normal, active bowel sounds MUSCULOSKELETAL: Extremities without clubbing, cyanosis, or edema. NEURO: Alert & Oriented x4 to person, place, time, situation. Moves all ext x4 Hospital Course Community-acquired pneumonia/sepsis Patient tachycardic, tachypneic with leukocytosis and hypoxemia. Chest x-ray significant for left lower lobe pneumonia. CT pulmonary angiogram negative for PE. treated with IV antibiotics which were switched to po upon discharge. she passed the walk test. she will have a f/u with pcp upon discharge. Pt Condition on Discharge: Fair Discharge Disposition: Discharge Home Discharge Time: <= 30 minutes Discharge Instructions DIET: Follow Instructions for: Heart Healthy Diet Activities you can perform: Regular-No Restrictions Michael Le MD Oct 09, 2017 10:20
== END 2017-10-09 13:35 | disposition home or self-care (01) | DRG 871 ==
LOC: NEPE 14:24 → NEDA 18:29 → N07B 19:28
PROVIDERS: ADMIT Internal Medicine; ATTEND Internal Medicine
DX: A41.9 Sepsis, unspecified organism (principal); J18.9 Pneumonia, unspecified organism; I45.10 Unspecified right bundle-branch block; R09.02 Hypoxemia; N28.9 Disorder of kidney and ureter, unspecified
CPT/HCPCS: 36600; 71045; 71275; 80048; 80053; 82805; 83690; 83735; 83880; 84443; 85025; 85027; 87804; 93005; 94150; 94618; 94640; 94664; 96365; 96375; J0456; J0696; J2920; J2930; J7030; J7050; J7613; Q9967

== ENCOUNTER → 2017-12-27 | Outpatient (CLI) | payer OTHER ==
[~2017-12-27] MED LIST changes: -AUGM875T3 PO; +CEFU1TAB18 PO; +PRED20 PO; +VENTAER INH; +ZITH250T PO
--- NOTE | 2017-12-28 12:00 | RSPPFT ---
DATE OF PROCEDURE: 12/27/17 COMMENTS: Spirometry with FVC of 2.0 predicted 2.9, FEV1 of 1.6 predicted 2.4, FEV1/FVC ratio 84% predicted 85%. IMPRESSION: On the basis of the above, patient has flow values within the predicted range. There are no significant changes following acutely inhaled bronchodilator.
== END ==
LOC: HRSP 10:51
PROVIDERS: ATTEND Family Medicine
DX: R06.02 Shortness of breath (principal)
CPT/HCPCS: 94060